=== PATIENT | female | born 1985 | race Caucasian/White ===

== ENCOUNTER 2023-11-15 10:30 | Emergency (ER) | payer OTHER ==
[~2023-11-15] VITALS: Ht 160 cm; Wt 81.6 kg
[2023-11-15 10:55] VITALS: BP 117/75; PULSE 67; RESP 18; TEMP 98.2; O2SAT 98
[2023-11-15] MEDS ORDERED: DICL20GE TP (13:01)
[2023-11-15] MEDS ORDERED: NAPR-54 PO (13:01)
[2023-11-15] MEDS ORDERED: LID5T TP (13:01)
[2023-11-15] MEDS ORDERED: ACETAMINOPHEN EXTRA STRENGTH 500 MG TAB PO ONE (13:05)
[2023-11-15] MEDS ORDERED: KETOROLAC 30 MG/ML VIAL IM ONE (14:00)
== END 2023-11-15 14:14 | disposition home or self-care (01) ==
LOC: MED 10:30
DX: M25.561 Pain in right knee (principal); M25.511 Pain in right shoulder; M79.641 Pain in right hand; M79.642 Pain in left hand; W01.198A Fall on same level from slipping, tripping and stumbling with subsequent striking against other object, initial encounter; Y93.89 Activity, other specified; Y92.89 Other specified places as the place of occurrence of the external cause; Y99.8 Other external cause status
CPT/HCPCS: 73562; 96372; 99283; J1885